=== PATIENT | male | born 1975 | race Caucasian/White ===

== ENCOUNTER 2016-09-06 21:47 | Emergency (ER) | payer OTHER ==
[~2016-09-06] VITALS: Ht 175.3 cm; Wt 98.9 kg
--- NOTE | 2016-09-06 22:47 | ED GENERAL ADULT ---
History of Present Illness General Chief Complaint: General Adult Stated Complaint: "OFF-BALANCE" X FEW DAYS NOW WITH FACIAL NUMBNESS Source: patient, family, old records Exam Limitations: no limitations Vital Signs & Intake/Output Vital Signs & Intake/Output Vital Signs Date Time Temp Pulse Resp B/P Pulse O2 O2 Flow FiO2 Ox Delivery Rate 09/06 2158 98.4 70 18 147/89 99 Room Air ED Intake and Output 09/07 0000 09/06 1200 Intake Total Output Total Balance Patient 218 lb Weight Allergies Uncoded Allergies: LIQUID PERCOCET (04/18/11) Reconcile Medications Amoxicillin 500 MG TABLET 1 TAB PO TID SINUSITIS Mometasone Furoate (Nasonex) 50 MCG SPRAY.PUMP 2 SPRAY NASB DAILY SINUS CONGESTION Sulfamethoxazole/Trimethoprim (Bactrim Ds Tablet) 800 MG-160 MG TABLET 1 TAB PO BID SINUSITIS Triage Note: PT TO ED FOR FOREHEAD PAIN, BLOODY MUCUS FROM HIS NOSE, LIGHTHEADEDNESS AND LIP TINGLING. REPORTING FOREHEAD PAIN AND BLOODY MUCUS HAS BEEN CHRONIC OVER PAST THREE MONTHS. HAS HAD [facility] F/U WITH ENT FOR SAME. Triage Nurses Notes Reviewed? yes HPI: Patient presents stating that he just feels off for the past few days. Positive sinus congestion. Patient states that it feels like he has had sinusitis in the past. Patient also has a history of MRSA sinusitis. Patient states that he has seen his nose and throat doctor and he was told just to use sinus flushes. Patient has been doing that without any relief. Since yesterday patient has been blowing out blood clots. No nausea or vomiting. Patient denies any monitoring dizziness. Patient denies any tinnitus. Past History Travel History Traveled to [place] past 21 day No Medical History Any Pertinent Medical History? see below for history Neurological: NONE EENT: CHRONIC SINUSITIS Cardiovascular: NONE Respiratory: NONE Gastrointestinal: NONE Hepatic: NONE Renal: NONE Musculoskeletal: NONE Psychiatric: ANXIETY Endocrine: NONE Blood Disorders: NONE Cancer(s): NONE Tetanus Vaccine: Surgical History Surgical History: non-contributory Psychosocial History What is your primary language Polish Tobacco Use: Never used ETOH Use: denies use Illicit Drug Use: denies illicit drug use Family History Hx Contributory? No Review of Systems Review of Systems Constitutional: Reports: see HPI, chills. EENTM: Reports: see HPI, nasal congestion. Respiratory: Reports: no symptoms. Cardiovascular: Reports: no symptoms. GI: Reports: no symptoms. Musculoskeletal: Reports: no symptoms. Neurological/Psychological: Reports: see HPI. Immunologic/Allergic: Reports: no symptoms. Physical Exam Physical Exam General Appearance: well developed/nourished, alert, awake Head: atraumatic, normal appearance Eyes: Bilateral: PERRL, EOMI. Ears, Nose, Throat: normal pharynx, normal ENT inspection, hearing grossly normal, nasal congestion Neck: normal inspection, supple, full range of motion Respiratory: normal breath sounds, chest non-tender, no respiratory distress, lungs clear Cardiovascular: regular rate/rhythm, normal peripheral pulses Gastrointestinal: normal bowel sounds, soft, non-tender, no organomegaly Back: normal inspection, normal range of motion Extremities: normal inspection, normal capillary refill, normal range of motion, no edema Neurologic/Psych: no motor/sensory deficits, awake, alert, oriented x 3, normal mood/affect Skin: intact, normal color, warm/dry Lymphatic: no anterior cervical jorje Core Measures ACS in differential dx? No CVA/TIA Diagnosis: No Severe Sepsis Present: No Septic Shock Present: No Progress Differential Diagnoses I considered the following diagnoses in my evaluation of the patient: [Sinusitis , ICH] Plan of Care: Orders Procedure Date/time Status COMPREHENSIVE METABOLIC PANEL 09/06 224 Complete CBC WITHOUT DIFFERENTIAL 09/06 2245 Complete Laboratory Tests 09/06/16 2300: Anion Gap 10, Estimated GFR > 60, BUN/Creatinine Ratio 15.0, Glucose 120 H, Calcium 9.0, Total Bilirubin 1.0, AST 32, ALT 42, Alkaline Phosphatase 59, Total Protein 7.2, Albumin 4.3, Globulin 2.9, Albumin/Globulin Ratio 1.5, CBC w Diff NO MAN DIFF REQ, RBC 5.60, MCV 83.3, MCH 28.7, RDW 13.4, MPV 7.7, Gran % 56.7, Lymphocytes % 31.2, Monocytes % 7.9, Eosinophils % 3.8, Basophils % 0.4, Absolute Granulocytes 3.7, Absolute Lymphocytes 2.1, Absolute Monocytes 0.5, Absolute Eosinophils 0.2, Absolute Basophils 0, PUBS MCHC 34.5 Diagnostic Imaging: Viewed by Me: CT Scan. Discussed w/RAD: CT Scan. Radiology Impression: PATIENT: ELISABET STONE PRESENT AGE: 41 PATIENT ACCOUNT NO: [id number] : 77 LOCATION: [facility] ORDERING PHYSICIAN: JUMA IVEY MD SERVICE DATE: 09/06/16 EXAM TYPE: CAT - CT HEAD WO IV CONTRAST EXAMINATION: CT HEAD WITHOUT CONTRAST CLINICAL INFORMATION: Sinusitis "I Feel Off " COMPARISON: None TECHNIQUE: Contiguous axial imaging was performed from the skull base to vertex without intravenous administration of contrast. DLP: 600.71 mGy-cm FINDINGS: There is no evidence of acute intracranial hemorrhage or territorial infarction. No abnormal mass effect or midline shift is seen. Lino to white matter differentiation is well preserved. No extra-axial fluid collections are identified. The ventricles are normal in size. There is no abnormal attenuation within the brain parenchyma. The osseous structures and soft tissues are normal. The mastoid air cells and visualized portions of the paranasal sinuses are well aerated. IMPRESSION: No acute intracranial pathology. DICTATED BY: JUDITH VALE MD DATE/TIME DICTATED:2257 LAW OFFICE MANAGER:PINO DATE/TIME TRANSCRIBED:09/06/162257 CONFIDENTIAL, DO NOT COPY WITHOUT APPROPRIATE AUTHORIZATION. <Electronically signed in Other Vendor System> SIGNED BY: JUDITH VALE MD 09/06/16 7865 Initial ED EKG: none Departure Departure Disposition: HOME OR SELF CARE Condition: Stable Clinical Impression Primary Impression: Sinusitis Referrals: NAI GARCIA,IFEOMA HEREDIA D.O. (PCP/Family) Additional Instructions: FOLLOW UP WITH DR. TRIMBLE TAKE MEDS DIRECTED RETURN IF SYMPTOMS WORSEN OR FOR ANY CONCERNS Departure Forms: Customer Survey General Discharge Information Prescriptions: Current Visit Scripts Amoxicillin 1 TAB PO TID #30 TAB Sulfamethoxazole/Trimethoprim (Bactrim Ds Tablet) 1 TAB PO BID #20 TAB Mometasone Furoate (Nasonex) 2 SPRAY NASB DAILY #1 INHAL Critical Care Note Critical Care Note Critical Care Time: non-applicable
--- NOTE | 2016-09-06 23:04 | CT SCAN REPORT ---
EXAMINATION: CT HEAD WITHOUT CONTRAST CLINICAL INFORMATION: Sinusitis "I Feel Off " COMPARISON: None TECHNIQUE: Contiguous axial imaging was performed from the skull base to vertex without intravenous administration of contrast. DLP: 600.71 mGy-cm FINDINGS: There is no evidence of acute intracranial hemorrhage or territorial infarction. No abnormal mass effect or midline shift is seen. Lino to white matter differentiation is well preserved. No extra-axial fluid collections are identified. The ventricles are normal in size. There is no abnormal attenuation within the brain parenchyma. The osseous structures and soft tissues are normal. The mastoid air cells and visualized portions of the paranasal sinuses are well aerated. IMPRESSION: No acute intracranial pathology.
[2016-09-06 23:10] LABS: ABSOLUTE BASOPHIL COUNT 0 /CUMM (0.0-0.2); ABSOLUTE EOSINOPHIL COUNT 0.2 /CUMM (0.0-0.7); ABSOLUTE GRANULOCYTE CT 3.7 /CUMM (1.4-6.5); ABSOLUTE LYMPH COUNT 2.1 /CUMM (1.2-3.4); ABSOLUTE MONOCYTE COUNT 0.5 /CUMM (0.10-0.60); BASOPHIL % 0.4 % (0.0-2.0); EOSINOPHIL % 3.8 % (0-5); GRANULOCYTE % 56.7 % (42.2-75.2); HEMATOCRIT 46.6 % (42-52); MEAN CORPUSCULAR HGB 28.7 PG (27.0-31.0); MEAN CORPUSCULAR HGB CONC 34.5 G/DL (33.0-37.0); MEAN CORPUSCULAR VOLUME 83.3 FL (80.0-94.0); MEAN PLATELET VOLUME 7.7 FL (7.4-10.4); PLATELET COUNT 247 /CUMM (130-400); RBC DISTRIBUTION WIDTH 13.4 % (11.5-14.5); WHITE BLOOD CELL COUNT 6.6 /CUMM (4.8-10.8)
[2016-09-06] MEDS ORDERED: BACTRIM DS TAB1 EACH PO (23:52)
[2016-09-06] MEDS ORDERED: AMOXICILLIN500 M3 PO (23:52)
[2016-09-06] MEDS ORDERED: NASONEX17 GM NASB (23:52)
[2016-09-07 00:04] VITALS: BP 135/87
== END 2016-09-07 00:04 ==
LOC: ERH 21:47
PROVIDERS: Emergency Medicine
DX: J32.9 Chronic sinusitis, unspecified (principal)
CPT/HCPCS: 96360